=== PATIENT | male | born 2000 | race Caucasian/White ===

== ENCOUNTER 2024-04-16 11:45 | Emergency (ER) | payer MEDICAID ==
[~2024-04-16] VITALS: Ht 167.6 cm; Wt 84.4 kg
[2024-04-16 11:52] VITALS: BP 112/61; PULSE 75; RESP 18; TEMP 98.7; O2SAT 97
[2024-04-16 12:17] LABS: BASOPHILS % 0.8 % (0.0-2.0); EOSINOPHILS % 4.3 % (0.0-5.0); HEMATOCRIT. 45.4 % (42.0-52.0); HEMOGLOBIN. 15.6 g/dL (14.0-18.0); LYMPHOCYTES % 43.7 % (20.0-50.0); MEAN CORPUSCULAR HEMOGLOBIN 28.6 pg (28.0-32.0); MEAN CORPUSCULAR HGB CONC 34.3 g/dL (31.0-37.0); MEAN CORPUSCULAR VOLUME 83.3 fL (80.0-94.0); MONOCYTES % 7.4 % (2.0-8.0); NEUTROPHILS % 43.8 % (40.0-76.0); PLATELET 323 x1000/uL (130-400); RED BLOOD CELL COUNT 5.44 mill/uL (4.7-6.1); RED CELL DISTRIBUTION WIDTH 12.8 % (11.6-14.6); WHITE BLOOD COUNT 5.3 x1000/uL (4.5-11.0)
[2024-04-16 12:24] LABS: CHLORIDE 109 mEq/L (98-107); POTASSIUM 4.3 mEq/L (3.5-5.1); SODIUM 138 mEq/L (136-145)
[2024-04-16 12:25] LABS: CARBON DIOXIDE 24 mEq/L (21-32)
[2024-04-16 12:30] LABS: CREATININE 0.9 mg/dL (0.6-1.3); GLUCOSE 102 mg/dL (70-105); UREA NITROGEN BLOOD 14 mg/dL (9-23)
[2024-04-16] MEDS: MECLIZINE 25MG TABLET PO ONE (13:07)
[2024-04-16 13:20] LABS: TROPONIN I HIGH SENSITIVITY < 4 ng/L (3.0-53)
[2024-04-16] MEDS ORDERED: MAG355OR21 MT (14:48)
[2024-04-16] MEDS ORDERED: MECL-299 MT (14:48)
[2024-04-16] MEDS ORDERED: FAMO-135 MT (14:48)
== END 2024-04-16 15:00 | disposition home or self-care (01) ==
LOC: ER 11:45
DX: R42 Dizziness and giddiness (principal); Z20.822 Contact with and (suspected) exposure to COVID-19
CPT/HCPCS: 99285; 71045; 87426; 80048; 85025; 84484; 87804 ×2; 36415; 93005; J8597

== ENCOUNTER 2024-05-04 18:05 | Emergency (ER) | payer MEDICAID, OTHER ==
[~2024-05-04] VITALS: Ht 172.7 cm; Wt 90.0 kg
[~2024-05-04 18:05] MED LIST: FAMO-135 MT; MAG355OR21 MT; MECL-299 MT
[2024-05-04 18:27] VITALS: TEMP 98.7; O2SAT 98
[2024-05-04] MEDS ORDERED: TUSSL MT (20:32)
[2024-05-04] MEDS ORDERED: IBUP-2028 MT (20:32)
[2024-05-04] MEDS: IBUPROFEN 400MG TABLET PO ONE (20:49)
[2024-05-04 20:54] VITALS: BP 121/69; PULSE 75; RESP 15; O2SAT 99
== END 2024-05-04 20:56 | disposition home or self-care (01) ==
LOC: ER 18:05
DX: B34.9 Viral infection, unspecified (principal); R51.9 Headache, unspecified
CPT/HCPCS: 99283

== ENCOUNTER 2024-05-14 21:05 | Emergency (ER) | payer MEDICAID, OTHER ==
[~2024-05-14] VITALS: Ht 177.8 cm; Wt 82.0 kg
[~2024-05-14 21:05] MED LIST changes: +IBUP-2028 MT; +TUSSL MT
[2024-05-14 21:15] VITALS: O2SAT 97
[2024-05-14 23:25] VITALS: BP 126/63; PULSE 81; RESP 18; TEMP 36.61404; O2SAT 97
== END 2024-05-14 23:33 | disposition home or self-care (01) ==
LOC: ER 21:30
DX: F41.0 Panic disorder [episodic paroxysmal anxiety] (principal); R20.0 Anesthesia of skin
CPT/HCPCS: 99283